=== PATIENT | female | born 1960 | race Caucasian/White ===

== ENCOUNTER 2019-12-29 23:41 | Emergency (ER) | payer MEDICARE ==
[~2019-12-29] VITALS: Ht 157.5 cm; Wt 34.0 kg
--- OUTSIDE RECORDS SUMMARY | 2019-12-29 23:44 | XMS REPORT ---
[facility] Unknown Phone Unavailable Care Team Providers Care Political Scientist Name Role Phone Unavailable Unavailable Payers Payer Name Policy Type Policy Number Effective Date Expiration Date Problems This patient has no known problems. Allergies, Adverse Reactions, Alerts Allergy Name Allergy Type Status Severity Reaction(s) Onset Date Inactive Date Treating Clinician Comments ibuprofen DA Active [place] 2019-08-29 00:00:00 ibuprofen DA Active [place] 2018-05-10 00:00:00 Medications This patient has no known medications. Encounters Start Date/Time End Date/Time Encounter Type Admission Type Attending Clinicians Care Facility Care Department Encounter ID 2020-01-24 00:00:00 2020-01-24 00:00:00 Outpatient [facility] [id number] 2020-01-13 00:00:00 2020-01-13 00:00:00 Outpatient [facility] [id number] 2020-01-13 00:00:00 2020-01-13 00:00:00 Outpatient [facility] [id number] 2020-01-13 00:00:00 2020-01-13 00:00:00 Outpatient [facility] [id number] 2019-12-30 00:00:00 2019-12-30 00:00:00 Outpatient [facility] [id number] 2019-12-24 00:00:00 2019-12-24 00:00:00 Outpatient [facility] [id number] 2019-12-24 00:00:00 2019-12-24 00:00:00 Outpatient [facility] [id number] 2019-12-23 10:35:43 2019-12-23 10:35:43 Outpatient [facility] [id number] 2019-12-23 10:07:18 2019-12-23 10:07:18 Outpatient [facility] [id number] 2019-12-23 00:00:00 2019-12-23 00:00:00 Outpatient [facility] [id number] 2019-12-16 10:05:33 2019-12-16 10:05:33 Outpatient [facility] [id number] 2019-12-16 09:41:11 2019-12-16 09:41:11 Outpatient [facility] [id number] 2019-12-16 00:00:00 2019-12-16 00:00:00 Outpatient [facility] [id number] 2019-12-16 00:00:00 2019-12-16 00:00:00 Outpatient [facility] [id number] 2019-12-16 00:00:00 2019-12-16 00:00:00 Outpatient [facility] [id number] 2019-12-09 00:00:00 2019-12-09 00:00:00 Outpatient [facility] [id number] 2019-12-01 00:00:00 2019-12-01 00:00:00 Outpatient [facility] [id number] 2019-11-29 00:00:00 2019-11-29 00:00:00 Outpatient [facility] [id number] 2019-11-23 09:41:50 2019-11-23 09:41:50 Outpatient [facility] [id number] 2019-11-22 13:08:23 2019-11-22 13:08:23 Outpatient [facility] [id number] 2019-11-18 10:10:23 2019-11-18 10:10:23 Outpatient [facility] [id number] 2019-11-18 10:01:01 2019-11-18 10:01:01 Outpatient [facility] [id number] 2019-11-18 00:00:00 2019-11-18 00:00:00 Outpatient [facility] [id number] 2019-11-12 10:01:01 2019-11-12 10:01:01 Outpatient [facility] [id number] 2019-11-11 15:48:42 2019-11-11 15:48:42 Outpatient [facility] [id number] 2019-10-22 09:47:33 2019-10-22 09:47:33 Outpatient [facility] [id number] 2019-10-22 00:00:00 2019-10-22 00:00:00 Outpatient [facility] [id number] 2019-10-22 00:00:00 2019-10-22 00:00:00 Outpatient [facility] [id number] 2019-10-21 15:46:19 2019-10-21 15:46:19 Outpatient [facility] [id number] 2019-10-21 10:30:55 2019-10-21 10:30:55 Outpatient [facility] [id number] 2019-10-21 09:59:57 2019-10-21 09:59:57 Outpatient [facility] [id number] 2019-10-07 00:00:00 2019-10-07 00:00:00 Outpatient [facility] [id number] 2019-10-07 00:00:00 2019-10-07 00:00:00 Outpatient [facility] [id number] 2019-10-07 00:00:00 2019-10-07 00:00:00 Outpatient [facility] [id number] 2019-10-07 00:00:00 2019-10-07 00:00:00 Outpatient [facility] [id number] 2019-09-23 11:17:45 2019-09-23 11:17:45 Outpatient [facility] [id number] 2019-09-23 10:30:55 2019-09-23 10:30:55 Outpatient [facility] [id number] 2019-09-22 00:00:00 2019-09-22 00:00:00 Outpatient [facility] [id number] 2019-09-21 16:03:02 2019-09-21 16:03:02 Outpatient [facility] [id number] 2019-09-13 16:30:29 2019-09-13 16:30:29 [facility] [id number] 2019-09-09 10:24:15 2019-09-09 10:24:15 Outpatient [facility] [id number] 2019-08-26 10:10:07 2019-08-26 10:10:07 Outpatient [facility] [id number] 2019-08-26 09:26:02 2019-08-26 09:26:02 Outpatient [facility] [id number] 2019-08-25 00:00:00 2019-08-25 00:00:00 Outpatient [facility] [id number] 2019-08-24 00:00:00 2019-08-24 00:00:00 Outpatient [facility] [id number] 2019-08-24 00:00:00 2019-08-24 00:00:00 Outpatient [facility] [id number] 2019-08-12 00:00:00 2019-08-12 00:00:00 Outpatient [facility] [id number] 2019-08-10 00:00:00 2019-08-10 00:00:00 Outpatient [facility] [id number] 2019-08-10 00:00:00 2019-08-10 00:00:00 Outpatient [facility] [id number] 2019-08-06 00:00:00 2019-08-06 00:00:00 Outpatient [facility] [id number] 2019-08-06 00:00:00 2019-08-06 00:00:00 Outpatient [facility] [id number] 2019-08-05 00:00:00 2019-08-05 00:00:00 Outpatient [facility] [id number] 2019-07-27 13:21:13 2019-07-27 13:21:13 Outpatient [facility] [id number] 2019-07-27 12:55:29 2019-07-27 12:55:29 Outpatient [facility] [id number] 2019-07-23 12:51:39 2019-07-23 12:51:39 Outpatient [facility] [id number] 2019-07-23 12:51:35 2019-07-23 12:51:35 Outpatient [facility] [id number] 2019-07-23 12:05:06 2019-07-23 12:05:06 Outpatient [facility] [id number] 2019-07-23 10:08:54 2019-07-23 10:08:54 Outpatient [facility] [id number] 2019-07-23 00:00:00 2019-07-23 00:00:00 Outpatient [facility] [id number] 2019-07-20 14:19:34 2019-07-20 14:19:34 Outpatient [facility] [id number] 2019-07-13 13:39:25 2019-07-13 13:39:25 Outpatient [facility] [id number] 2019-07-06 00:00:00 2019-07-06 00:00:00 Outpatient [facility] [id number] 2019-07-05 00:00:00 2019-07-05 00:00:00 Outpatient [facility] [id number] 2019-06-29 12:53:46 2019-06-29 12:53:46 Outpatient [facility] [id number] 2019-06-29 12:42:06 2019-06-29 12:42:06 Outpatient [facility] [id number] 2019-06-07 15:32:42 2019-06-07 15:32:42 Outpatient [facility] [id number] 2019-06-01 11:18:12 2019-06-01 11:18:12 Outpatient [facility] [id number] 2019-06-01 11:00:38 2019-06-01 11:00:38 Outpatient [facility] [id number] 2019-05-10 15:37:38 2019-05-10 15:37:38 Outpatient [facility] [id number] 2019-05-04 10:26:36 2019-05-04 10:26:36 Outpatient [facility] [id number] 2019-05-04 10:06:59 2019-05-04 10:06:59 Outpatient [facility] [id number] 2019-04-15 09:50:12 2019-04-15 09:50:12 Outpatient [facility] [id number] 2019-04-06 10:32:50 2019-04-06 10:32:50 Outpatient [facility] [id number] 2019-04-06 10:15:58 2019-04-06 10:15:58 Outpatient [facility] [id number] 2019-04-05 13:14:38 2019-04-05 13:14:38 Outpatient [facility] [id number] 2019-03-12 10:32:33 2019-03-12 10:32:33 Outpatient [facility] [id number] 2019-03-12 10:13:10 2019-03-12 10:13:10 Outpatient [facility] [id number] 2019-03-10 08:43:31 2019-03-10 08:43:31 Outpatient [facility] [id number] 2019-02-22 00:00:00 2019-02-22 00:00:00 Outpatient [facility] [id number] 2019-02-12 10:32:24 2019-02-12 10:32:24 Outpatient [facility] [id number] 2019-02-12 10:12:03 2019-02-12 10:12:03 Outpatient [facility] [id number] 2019-02-11 14:35:50 2019-02-11 14:35:50 Outpatient [facility] [id number] 14:12:23 2019 14:12:23 Outpatient [facility] [id number] 2019-01-15 09:55:28 2019-01-15 09:55:28 Outpatient [facility] [id number] 2019-01-15 09:39:50 2019-01-15 09:39:50 Outpatient [facility] [id number] 2019-01-12 13:41:37 2019-01-12 13:41:37 Outpatient [facility] [id number] 2018-12-18 10:17:11 2018-12-18 10:17:11 Outpatient [facility] [id number] 2018-12-18 10:01:54 2018-12-18 10:01:54 Outpatient [facility] [id number] 2018-12-03 08:51:10 2018-12-03 08:51:10 Outpatient [facility] [id number] 2018-11-23 00:00:00 2018-11-23 00:00:00 Outpatient [facility] [id number] 2018-11-23 00:00:00 2018-11-23 00:00:00 Outpatient [facility] [id number] 2018-11-20 09:41:45 2018-11-20 09:41:45 Outpatient [facility] [id number] 2018-11-20 09:28:38 2018-11-20 09:28:38 Outpatient [facility] [id number] 2018-10-27 13:36:59 2018-10-27 13:36:59 Outpatient [facility] [id number] 2018-10-23 09:55:26 2018-10-23 09:55:26 Outpatient [facility] [id number] 2018-10-23 09:38:28 2018-10-23 09:38:28 Outpatient [facility] [id number] 2018-10-07 13:25:20 2018-10-07 13:25:20 Outpatient [facility] [id number] 2018-09-29 00:00:00 2018-09-29 00:00:00 Outpatient [facility] [id number] 2018-09-25 09:38:22 2018-09-25 09:38:22 Outpatient [facility] [id number] 2018-09-25 09:16:40 2018-09-25 09:16:40 Outpatient [facility] [id number] 2018-09-16 13:38:56 2018-09-16 13:38:56 Outpatient [facility] [id number] 2018-09-09 13:25:03 2018-09-09 13:25:03 Outpatient [facility] [id number] 2018-09-09 13:10:54 2018-09-09 13:10:54 Outpatient [facility] [id number] 2018-08-31 10:14:37 2018-08-31 10:14:37 Outpatient [facility] [id number] 2018-08-21 08:55:25 2018-08-21 08:55:25 Outpatient [facility] [id number] 2018-08-21 08:32:18 2018-08-21 08:32:18 Outpatient [facility] [id number] 2018-08-14 00:00:00 2018-08-14 00:00:00 Outpatient [facility] [id number] 2018-08-12 00:00:00 2018-08-12 00:00:00 Outpatient [facility] [id number] 2018-08-11 09:20:58 2018-08-11 09:20:58 Outpatient [facility] [id number] 2018-08-11 09:02:38 2018-08-11 09:02:38 Outpatient [facility] [id number] 2018-08-07 09:07:12 2018-08-07 09:07:12 Outpatient [facility] [id number] 2018-08-07 08:49:45 2018-08-07 08:49:45 Outpatient [facility] [id number] 2018-07-31 09:57:34 2018-07-31 09:57:34 Outpatient [facility] [id number] 2018-07-31 09:23:50 2018-07-31 09:23:50 Outpatient [facility] [id number] 2018-07-27 08:32:58 2018-07-27 08:32:58 Outpatient [facility] [id number] 2018-07-24 08:52:19 2018-07-24 08:52:19 Outpatient [facility] [id number] 2018-07-24 08:35:47 2018-07-24 08:35:47 Outpatient [facility] [id number] 2018-07-23 00:00:00 2018-07-23 00:00:00 Outpatient [facility] [id number] 2018-07-21 07:44:04 2018-07-21 07:44:04 Outpatient [facility] [id number] 2018-07-21 00:00:00 2018-07-21 00:00:00 Outpatient [facility] [id number] 2018-07-17 08:18:32 2018-07-17 08:18:32 Outpatient [facility] [id number] 2018-07-17 08:18:04 2018-07-17 08:18:04 Outpatient [facility] [id number] 2018-07-16 00:00:00 2018-07-16 00:00:00 Outpatient [facility] [id number] 2018-07-14 11:08:11 2018-07-14 11:08:11 Outpatient [facility] [id number] 2018-07-14 09:29:38 2018-07-14 09:29:38 Outpatient [facility] [id number] 2018-07-13 08:23:31 2018-07-13 08:23:31 Outpatient [facility] [id number] 2018-07-09 14:41:48 2018-07-09 14:41:48 Outpatient [facility] [id number] 2018-07-06 09:07:04 2018-07-06 09:07:04 Outpatient [facility] [id number] 2018-07-06 00:00:00 2018-07-06 00:00:00 Outpatient [facility] [id number] 2018-06-30 09:09:12 2018-06-30 09:09:12 Outpatient [facility] [id number] 2018-06-29 11:58:35 2018-06-29 11:58:35 Outpatient [facility] [id number] 2018-06-22 10:45:52 2018-06-22 10:45:52 Outpatient [facility] [id number] 2018-06-22 09:17:51 2018-06-22 09:17:51 Outpatient [facility] [id number] 2018-06-17 15:18:35 2018-06-17 15:18:35 Outpatient [facility] [id number] 2018-06-16 00:00:00 2018-06-16 00:00:00 Outpatient [facility] [id number] 2018-06-11 08:49:21 2018-06-11 08:49:21 Outpatient [facility] [id number] 2018-05-21 08:08:03 2018-05-21 08:08:03 Outpatient [facility] [id number] 2018-05-04 20:38:42 2018-05-04 20:38:42 [facility] [id number] Results Test Description Test Time Test Comments Text Results Atomic Results Result Comments - XR WRIST 3 + V RT 2019-08-29 19:23:00 FAX: CARA RAYA NP [place]: St: REG Name: JASON GARCIA [facility] : 1960 Age/S: 59/F [address] [facility] Unit #: [id number] Loc: [place] [address] Phys: CARA RAYA NP Acct: [id number] Dis Date: Status: REG ER PHONE #: [phone] Exam Date: 08/29/2019 1900 FAX #: [phone] Reason: Pain EXAMS: CPT CODE: [id number] XR WRIST 3 + V RT [id number] CLINICAL HISTORY: Pain TECHNIQUE: AP, oblique, and lateral views of the right wrist COMPARISON: None FINDINGS: No acute fracture or dislocation. Bony trabecular pattern is unremarkable. No cortical destruction or periosteal reaction. Mild radiocarpal and triscaphe joint space narrowing. Regional soft tissues are unremarkable. IMPRESSION: Mild radiocarpal and triscaphe joint space narrowing. at 1923 Reported and signed by: Virginia Roberts D.O. CC: CARA RAYA NP Technologist: Kathleen Gonsales RT(R) Trnscrd Date/Time/By: 08/29/2019 (1922) : By: [email or web address] Orig Print D/T: S: 08/29/2019 (1926) PAGE 1 Signed Report URINALYSIS COMPLETE 2019-01-23 21:37:00 UA COLOR (test code=COLU) YELLOW YELLOW UA APPEARANCE (test code=APPU) CLEAR CLEAR UA GLUCOSE DIPSTICK (test code=DGLUU) NEGATIVE mg/dL NEGATIVE UA BILIRUBIN DIPSTICK (test code=BILU) NEGATIVE mg/dL NEGATIVE UA KETONE DIPSTICK (test code=KETU) Negative mg/dL NEGATIVE UA SPECIFIC GRAVITY (test code=SGU) 1.020 1.001-1.035 UA BLOOD DIPSTICK (test code=PREET) Negative NEGATIVE UA PH DIPSTICK (test code=DEBRA) 6.0 5.0-8.0 UA PROTEIN DIPSTICK (test code=PROU) Negative mg/dL NEGATIVE UA UROBILINIOGEN DIPSTICK (test code=URO) 2.0 (1+) mg/dL 0.0-0.2 UA NITRITE DIPSTICK (test code=ESTUARDO) NEGATIVE NEGATIVE UA LEUKOCYTE ESTERASE W REFLEX (test code=LEUUR) TRACE NEGATIVE UA WBC (test code=WBCU) 0-5 #/HPF 0-5 UA RBC (test code=RBCU) 0-2 #/HPF 0-5 UA EPITHELIAL CELLS (test code=EPIU) FEW per HPF FEW UA BACTERIA (test code=BACU) FEW #/HPF NONE UA CALCIUM OXALATE CRYSTALS (test code=CAOXU) FEW #/HPF NONE UA MUCUS (test code=MUCU) FEW #/LPF FEW Urine Source? Clean CatchURINALYSIS [id number] 21:31:00* Test Item Value Reference Range Comments UA COLOR (test code=COLU) YELLOW YELLOW UA APPEARANCE (test code=APPU) CLEAR CLEAR UA GLUCOSE DIPSTICK (test code=DGLUU) NEGATIVE mg/dL NEGATIVE UA BILIRUBIN DIPSTICK (test code=BILU) NEGATIVE mg/dL NEGATIVE UA KETONE DIPSTICK (test code=KETU) Negative mg/dL NEGATIVE UA SPECIFIC GRAVITY (test code=SGU) 1.020 1.001-1.035 UA BLOOD DIPSTICK (test code=PREET) Negative NEGATIVE UA PH DIPSTICK (test code=DEBRA) 6.0 5.0-8.0 UA PROTEIN DIPSTICK (test code=PROU) Negative mg/dL NEGATIVE UA UROBILINIOGEN DIPSTICK (test code=URO) mg/dL NEGATIVE UA NITRITE DIPSTICK (test code=ESTUARDO) NEGATIVE NEGATIVE UA LEUKOCYTE ESTERASE W REFLEX (test code=LEUUR) TRACE NEGATIVE UA WBC (test code=WBCU) per HPF 0-5 Urine Source? Clean Catch- CT ABD PELVIS W WO [id number] 22:48:00 Name: JASON GARCIA [facility] : 1960 Age/S: 58 / F [address] Unit #: [id number] Loc: [place] [address] Phys: Alexsandra Foster MD Acct: [id number] Di s Date: Status: REG ER PHONE #: Exam Date: 01/16/20192151 FAX #: [phone] Reason: left flank pain, diarrhea EXAMS: CPT CODE: [id number] CT ABD PELVIS W WO CONT 14507 REASON FOR EXAM: left flank pain, diarrhea EXAM ORDER DATE: 01/16/2019 8:51 PM Ordering M.Amos: Alexsandra Foster MD PROCEDURE: - CT ABD PELVIS W WO CONT COMPARISON: FINDINGS: CT images of the abdomen and pelvis were obtained 1st without and follow with IV and wi thout oral contrast at 5mm. Dose modulation, iterative reconstruction, and /or weight based adjustment of the MA/KV was utilized to reduce the radiat ion dose to as low as reasonably achievable. Intravenous co ntrast: 100c of Omnipaque 370. The liver, spleen, pancreas are reymundo ssly within normal limits. The gallbladder is unremarkable by CT. The kidneys are within normal limits. The urinary bladder is partially contracted. The colon, small bowel, and stomach are within nor mal limits without evidence of obstruction. The appendix is unremarkable. No evidence of free air or free fluid. The uterus is unremarkabl e. Diffuse atherosclerotic disease of the abdominal aorta IMPRESSION: No acute findings in the abdomen. Electronica lly Signed by Walker Oakes on 01/16/2019 at 2248 Reporte d and signed by: Carlin Oakes M.D. CC: Alexsandra Foster MD Technologist:Shailesh Kay, RT(R)(CT); MOL CTDI: DLP: Trnscb Date/Time: 01/16/2019 (2247) [email or web address] Orig Print D/T: S: 01/16/2019 (715) CTDI: DLP: PAGE 1 Signed Report BASIC METABOLIC [id number] 21:35:00* Test Item Value Reference Range Comments SODIUM (test code=NA) 139 mmol/L 136-145 POTASSIUM (test code=K) 3.5 mmol/L 3.5-5.1 CHLORIDE (test code=CL) 106.0 mmol/L 98-107 CARBON DIOXIDE (test code=CO2) 28.0 mmol/L 21-32 ANION GAP (test code=GAP) 8.5 10-20 GLUCOSE (test code=GLU) 78 mg/dL 74-106 BLOOD UREA NITROGEN (test code=BUN) 16 mg/dL 7-18 GLOMERULAR FILTRATION RATE (test code=GFR) > 60 mL/min >=60 Estimated GFR by using Modified MDRD formula.Chronic kidney disease is defined as either kidney damageor GFR <60 mL/min/1.73 m2 for >3 months. CREATININE (test code=CREAT) 0.90 mg/dL 0.55-1.02 Note change in reference range due to change in reagent. BUN/CREATININE RATIO (test code=BUN/CREA) 16.9 10-20 CALCIUM (test code=CA) 8.4 mg/dL 8.5-10.1 HEPATIC FUNCTION [id number] 21:35:00* Test Item Value Reference Range Comments TOTAL PROTEIN (test code=PROT) 7.1 gram/dL 6.4-8.2 ALBUMIN (test code=ALB) 3.6 g/dL 3.4-5.0 GLOBULIN (test code=GLOB) 3.5 gram/dL 2.7-4.2 ALBUMIN/GLOBULIN RATIO (test code=A/G) 1.0 0.75-1.50 BILIRUBIN TOTAL (test code=BILT) 0.40 mg/dL 0.0-1.0 BILIRUBIN DIRECT (test code=BILD) 0.11 mg/dL 0.0-0.20 SGOT/AST (test code=AST) 37 IUnit/L 15-37 SGPT/ALT (test code=ALT) 37 IUnit/L 12-78 ALKALINE PHOSPHATASE TOTAL (test code=ALKP) 107 IUnit/L 45-117 Note change in reference range due to change in reagent. [id number] 21:35:00* Test Item Value Reference Range Comments LIPASE (test code=LIP) 80 U/L 73.0-393.0 HCG SERUM [id number] 21:35:00* Test Item Value Reference Range Comments HCG SERUM QUAL (test code=HCGQL) NEGATIVE NEGATIVE This HCGQL test is NOT applicable for MALE patients.Check with nurse about probable order error.If Tumor Marker Test needed, nurse should order test "HCGTU"(Test #550.25354) URINALYSIS [id number] 21:25:00* Test Item Value Reference Range Comments UA COLOR (test code=COLU) YELLOW YELLOW UA APPEARANCE (test code=APPU) HAZY CLEAR UA GLUCOSE DIPSTICK (test code=DGLUU) NEGATIVE mg/dL NEGATIVE UA BILIRUBIN DIPSTICK (test code=BILU) NEGATIVE NEGATIVE UA KETONE DIPSTICK (test code=KETU) NEGATIVE mg/dL NEGATIVE UA SPECIFIC GRAVITY (test code=SGU) >=1.030 1.001-1.035 UA BLOOD DIPSTICK (test code=PRETE) TRACE NEGATIVE UA PH DIPSTICK (test code=DEBRA) 6.0 5.0-8.0 UA PROTEIN DIPSTICK (test code=PROU) TRACE (15) mg/dL Neg-15 UA UROBILINIOGEN DIPSTICK (test code=URO) 1 mg/dL (1+) mg/dL 0.0-0.2 UA NITRITE DIPSTICK (test code=ESTUARDO) NEGATIVE NEGATIVE UA LEUKOCYTE ESTERASE W REFLEX (test code=LEUUR) 1+ NEGATIVE UA WBC (test code=WBCU) 3-5 per HPF 0-5 IN SOME URINARY TRACT INFECTIONS THERE MAY NOT BE ENOUGHWBCs IN THE URINE TO TRIGGER AN AUTOMATIC (REFLEX) URINECULTURE. A SEPERATE ORDER FOR URINE CULTURE IS RECOMMENDEDIF THERE IS STRONG SUPPORT FOR A URINARY TRACT INFECTIONCLINICALLY. UA RBC (test code=RBCU) 0-3 per HPF 0-5 UA EPITHELIAL CELLS (test code=EPIU) Few (2-5/hpf) per HPF Few UA BACTERIA (test code=BACU) MANY per HPF NONE Urine Source? Clean CatchBASIC METABOLIC [id number] 21:17:00* Test Item Value Reference Range Comments SODIUM (test code=NA) 139 mmol/L 136-145 POTASSIUM (test code=K) 3.5 mmol/L 3.5-5.1 CHLORIDE (test code=CL) 106.0 mmol/L 98-107 CARBON DIOXIDE (test code=CO2) mmol/L 21-32 ANION GAP (test code=GAP) 10-20 GLUCOSE (test code=GLU) mg/dL 74-106 BLOOD UREA NITROGEN (test code=BUN) mg/dL 7-18 GLOMERULAR FILTRATION RATE (test code=GFR) mL/min >=60 CREATININE (test code=CREAT) mg/dL 0.55-1.02 BUN/CREATININE RATIO (test code=BUN/CREA) 10-20 CALCIUM (test code=CA) mg/dL 8.5-10.1 HEPATIC FUNCTION [id number] 21:17:00* Test Item Value Reference Range Comments TOTAL PROTEIN (test code=PROT) gram/dL 6.4-8.2 ALBUMIN (test code=ALB) g/dL 3.4-5.0 GLOBULIN (test code=GLOB) gram/dL 2.7-4.2 ALBUMIN/GLOBULIN RATIO (test code=A/G) 0.75-1.50 BILIRUBIN TOTAL (test code=BILT) mg/dL 0.0-1.0 BILIRUBIN DIRECT (test code=BILD) mg/dL 0.0-0.20 SGOT/AST (test code=AST) IUnit/L 15-37 SGPT/ALT (test code=ALT) IUnit/L 12-78 ALKALINE PHOSPHATASE TOTAL (test code=ALKP) IUnit/L 45-117 [id number] 21:17:00* Test Item Value Reference Range Comments LIPASE (test code=LIP) U/L 73.0-393.0 HCG SERUM [id number] 21:17:00* Test Item Value Reference Range Comments HCG SERUM QUAL (test code=HCGQL) NEGATIVE NEGATIVE This HCGQL test is NOT applicable for MALE patients.Check with nurse about probable order error.If Tumor Marker Test needed, nurse should order test "HCGTU"(Test #[id number]) BASIC METABOLIC [id number] 21:16:00* Test Item Value Reference Range Comments SODIUM (test code=NA) 139 mmol/L 136-145 POTASSIUM (test code=K) 3.5 mmol/L 3.5-5.1 CHLORIDE (test code=CL) 106.0 mmol/L 98-107 CARBON DIOXIDE (test code=CO2) mmol/L 21-32 ANION GAP (test code=GAP) 10-20 GLUCOSE (test code=GLU) mg/dL 74-106 BLOOD UREA NITROGEN (test code=BUN) mg/dL 7-18 GLOMERULAR FILTRATION RATE (test code=GFR) mL/min >=60 CREATININE (test code=CREAT) mg/dL 0.55-1.02 BUN/CREATININE RATIO (test code=BUN/CREA) 10-20 CALCIUM (test code=CA) mg/dL 8.5-10.1 HEPATIC FUNCTION [id number] 21:16:00* Test Item Value Reference Range Comments TOTAL PROTEIN (test code=PROT) gram/dL 6.4-8.2 ALBUMIN (test code=ALB) g/dL 3.4-5.0 GLOBULIN (test code=GLOB) gram/dL 2.7-4.2 ALBUMIN/GLOBULIN RATIO (test code=A/G) 0.75-1.50 BILIRUBIN TOTAL (test code=BILT) mg/dL 0.0-1.0 BILIRUBIN DIRECT (test code=BILD) mg/dL 0.0-0.20 SGOT/AST (test code=AST) IUnit/L 15-37 SGPT/ALT (test code=ALT) IUnit/L 12-78 ALKALINE PHOSPHATASE TOTAL (test code=ALKP) IUnit/L 45-117 [id number] 21:16:00* Test Item Value Reference Range Comments LIPASE (test code=LIP) U/L 73.0-393.0 HCG SERUM [id number] 21:16:00* Test Item Value Reference Range Comments HCG SERUM QUAL (test code=HCGQL) NEGATIVE URINALYSIS [id number] 21:11:00* Test Item Value Reference Range Comments UA COLOR (test code=COLU) YELLOW YELLOW UA APPEARANCE (test code=APPU) HAZY CLEAR UA GLUCOSE DIPSTICK (test code=DGLUU) NEGATIVE mg/dL NEGATIVE UA BILIRUBIN DIPSTICK (test code=BILU) NEGATIVE NEGATIVE UA KETONE DIPSTICK (test code=KETU) NEGATIVE mg/dL NEGATIVE UA SPECIFIC GRAVITY (test code=SGU) >=1.030 1.001-1.035 UA BLOOD DIPSTICK (test code=PREET) TRACE NEGATIVE UA PH DIPSTICK (test code=DEBRA) 6.0 5.0-8.0 UA PROTEIN DIPSTICK (test code=PROU) TRACE (15) mg/dL Neg-15 UA UROBILINIOGEN DIPSTICK (test code=URO) 1 mg/dL (1+) mg/dL 0.0-0.2 UA NITRITE DIPSTICK (test code=ESTUARDO) NEGATIVE NEGATIVE UA LEUKOCYTE ESTERASE W REFLEX (test code=LEUUR) 1+ NEGATIVE UA WBC (test code=WBCU) per HPF 0-5 Urine Source? Clean CatchCBC W/O [id number] 20:55:00* Test Item Value Reference Range Comments WHITE BLOOD CELL (test code=WBC) K/mm3 4.5-12.5 RED BLOOD CELL (test code=RBC) mill/mm3 3.7-5.2 HEMOGLOBIN (test code=HGB) 12.4 gram/dL 11.5-15.5 HEMATOCRIT (test code=HCT) 39.2 % 36.0-46.0 MEAN CELL VOLUME (test code=MCV) fL 80-98 MEAN CELL HGB (test code=MCH) picogram 27.0-33.0 MEAN CELL HGB CONCETRATION (test code=MCHC) gram/dL 33.0-36.0 RED CELL DISTRIBUTION WIDTH (test code=RDW) % 11.6-16.2 PLATELET COUNT (test code=PLT) K/mm3 150-450 MEAN PLATELET VOLUME (test code=MPV) fL 6.7-11.0 CBC W/O [id number] 20:55:00* Test Item Value Reference Range Comments WHITE BLOOD CELL (test code=WBC) 9.1 K/mm3 4.5-12.5 RED BLOOD CELL (test code=RBC) 4.21 mill/mm3 3.7-5.2 HEMOGLOBIN (test code=HGB) 12.4 gram/dL 11.5-15.5 HEMATOCRIT (test code=HCT) 39.2 % 36.0-46.0 MEAN CELL VOLUME (test code=MCV) 93.1 fL 80-98 MEAN CELL HGB (test code=MCH) 29.5 picogram 27.0-33.0 MEAN CELL HGB CONCETRATION (test code=MCHC) 31.6 gram/dL 33.0-36.0 RED CELL DISTRIBUTION WIDTH (test code=RDW) 13.5 % 11.6-16.2 PLATELET COUNT (test code=PLT) 209 K/mm3 150-450 MEAN PLATELET VOLUME (test code=MPV) 9.7 fL 6.7-11.0
[2019-12-30] MEDS ORDERED: KETOROLAC TROMETHAMINE 30 MG/ML VIAL IV STA (00:01)
[2019-12-30] MEDS ORDERED: SODIUM CHLORIDE 0.9% 1000ML 1,000 ML IV ONE (00:15)
[2019-12-30 00:22] LABS: BASOPHILS % 0.2 % (0.0-1.0); EOSINOPHILS % 0.3 % (0.0-6.0); HEMATOCRIT 44.5 % (34.2-44.1); HEMOGLOBIN 14.2 g/dL (12.0-16.0); LYMPHOCYTES # (AUTO) 0.6 (1.0-3.2); LYMPHOCYTES % 5.2 % (18.0-39.1); MEAN CORPUSCULAR HEMOGLOBIN 30.1 pg (28-32); MEAN CORPUSCULAR HGB CONC 31.9 g/dL (31-35); MEAN CORPUSCULAR VOLUME 94.5 fL (81-99); MONOCYTES # (AUTO) 0.3 (0.2-0.8); MONOCYTES % 2.9 % (4.4-11.3); NEUTROPHILS # (AUTO) 10.6 (2.1-6.9); NEUTROPHILS % 91.1 % (38.7-80.0); PLATELET COUNT 257 x10e3/uL (140-360); RED BLOOD COUNT 4.71 x10e6/uL (3.6-5.1); RED CELL DISTRIBUTION WIDTH 13.7 % (11.7-14.4)
--- NOTE | 2019-12-30 00:37 | Diagnostic Imaging Report ---
EXAMINATION: CHEST SINGLE (PORTABLE) INDICATION: Cough COMPARISON: None FINDINGS: TUBES and LINES: None. LUNGS: Normal lung volumes. Mild central bronchial wall thickening. No consolidations. PLEURA: No pleural effusion or pneumothorax. HEART AND MEDIASTINUM: The cardiomediastinal silhouette is unremarkable. There are atherosclerotic calcifications within the aorta. BONES AND SOFT TISSUES: No acute osseous lesion. Soft tissues are unremarkable. UPPER ABDOMEN: No free air under the diaphragm. IMPRESSION: Findings which can be seen with bronchitis. No consolidations. Signed by: José Hayes DO on 12/30/2019 12:34 AM
[2019-12-30 00:42] LABS: ALANINE AMINOTRANSFERASE 18 IU/L (0-55); ALBUMIN 4.2 g/dL (3.5-5.0); ALBUMIN/GLOBULIN RATIO 1.5 (0.8-2.0); ALKALINE PHOSPHATASE 92 IU/L (40-150); ANION GAP 16.7 mmol/L (8-16); BLOOD UREA NITROGEN 13 mg/dL (7-26); BUN/CREATININE RATIO 14 (6-25); CALCIUM 9.8 mg/dL (8.4-10.2); CARBON DIOXIDE 22 mmol/L (22-29); CHLORIDE 106 mmol/L (98-107); CREATINE KINASE 53 IU/L (29-168); CREATININE, SERUM 0.92 mg/dL (0.57-1.11); EST GLOMERULAR FILTRATION RATE > 60 ML/MIN (60-); GLUCOSE 141 mg/dL (74-118); POTASSIUM 3.7 mmol/L (3.5-5.1); SODIUM 141 mmol/L (136-145)
[2019-12-30 00:43] LABS: AMYLASE 70 U/L (25-125); LIPASE 4 U/L (8-78)
--- NOTE | 2019-12-30 00:53 | Diagnostic Imaging Report ---
EXAM: CT Abdomen and Pelvis WITHOUT contrast INDICATION: Left flank pain COMPARISON: None. TECHNIQUE: Abdomen and pelvis were scanned utilizing a multidetector helical scanner from the lung base to the pubic symphysis without administration of IV contrast. Absence of intravenous contrast decreases sensitivity for detection of focal lesions and vascular pathology. Coronal and sagittal reformations were obtained. Routine protocol was performed. IV CONTRAST: None ORAL CONTRAST: None COMPLICATIONS: None RADIATION DOSE: Total DLP: 174 mGy*cm Estimated effective dose: (DLP x 0.015 x size factor) mSv CTDIvol has been reviewed. It is below the limits set by the Radiation Protocol Committee (RPC). Dose modulation, iterative reconstruction, and/or weight based adjustment of the mA/kV was utilized to reduce the radiation dose to as low as reasonably achievable. FINDINGS: LINES and TUBES: None. LOWER THORAX: Left lower lung peripheral atelectasis. HEPATOBILIARY: No focal hepatic lesions. No biliary ductal dilation. GALLBLADDER: No radio-opaque stones or sludge. No wall thickening. SPLEEN: No splenomegaly. PANCREAS: No focal masses or ductal dilatation. ADRENALS: No adrenal nodules KIDNEYS/URETERS: No hydronephrosis. No cystic or solid mass lesions. No stones. GI TRACT: No abnormal distention, wall thickening, or evidence of bowel obstruction. Appendix is normal. PELVIC ORGANS/BLADDER: Hysterectomy. No adnexal masses. Urinary bladder unremarkable. LYMPH NODES: No lymphadenopathy. VESSELS: There is moderate atherosclerotic disease in the aorta and major arterial branches. PERITONEUM / RETROPERITONEUM: No free air or fluid. BONES: There are degenerative changes in the spine. Low bone mineral density. SOFT TISSUES: Unremarkable. IMPRESSION: 1. No acute abnormality in the abdomen or pelvis on this noncontrast CT. 2. Low bone mineral density. Signed by: José Hayes DO on 12/30/2019 12:50 AM
[2019-12-30 01:44] LABS: AMPHETAMINES SCREEN,URINE NEGATIVE (NEGATIVE); PHENCYCLIDINE SCREEN,URINE NEGATIVE (NEGATIVE)
[2019-12-30 01:45] LABS: BENZODIAZEPINES SCREEN,URINE POSITIVE (NEGATIVE)
[2019-12-30 03:20] LABS: CLARITY,URINE CLOUDY (CLEAR); COLOR,URINE YELLOW (YELLOW)
[2019-12-30 03:21] LABS: BILIRUBIN,URINE NEGATIVE (NEGATIVE); KETONES,URINE NEGATIVE (NEGATIVE); LEUKOCYTE ESTERASE ,URINE NEGATIVE (NEGATIVE); NITRITE,URINE NEGATIVE (NEGATIVE); PROTEIN,URINE DIPSTICK NEGATIVE (NEGATIVE); RBC,URINE >50 /HPF (0-5); URINE UROBILINOGEN 0.2 mg/dL (0.2 - 1)
[2019-12-30 03:22] LABS: BACTERIA,URINE MANY /HPF; EPITHELIAL CELLS,URINE FEW /LPF; MUCUS,URINE MODERATE (RARE)
[2019-12-30 03:40] VITALS: BP 102/80
== END 2019-12-30 03:55 | disposition home or self-care (01) ==
LOC: ER 23:41
DX: R10.12 Left upper quadrant pain (principal); R10.13 Epigastric pain; M54.6 Pain in thoracic spine; N30.91 Cystitis, unspecified with hematuria; F17.210 Nicotine dependence, cigarettes, uncomplicated
CPT/HCPCS: 36415; 71045; 74176; 80053; 80307; 81001; 82150; 82550; 82553; 82948; 83690; 84484; 85025; 93005; 99284; J1885; J7030

== ENCOUNTER 2023-02-17 21:13 | Emergency (ER) | payer OTHER ==
[~2023-02-17] VITALS: Ht 157.5 cm; Wt 34.0 kg
[2023-02-17] MEDS ORDERED: AMOX TR-K CLV1 EAC2 PO (22:00)
== END 2023-02-17 22:05 | disposition home or self-care (01) ==
LOC: ER 21:32
DX: R07.0 Pain in throat (principal); J03.90 Acute tonsillitis, unspecified; I10 Essential (primary) hypertension
CPT/HCPCS: 99282

== ENCOUNTER 2023-04-14 21:10 | Emergency (ER) | payer OTHER ==
[~2023-04-14] VITALS: Ht 157.5 cm; Wt 34.0 kg
[~2023-04-14 21:10] MED LIST: AMOX TR-K CLV1 EAC2 PO
[2023-04-14 22:13] LABS: BASOPHILS % 0.2 % (0.0-1.0); EOSINOPHILS # (AUTO) 0.2 (0.0-0.4); HEMATOCRIT 32.1 % (34.2-44.1); HEMOGLOBIN 9.2 g/dL (12.0-16.0); LYMPHOCYTES # (AUTO) 2.1 (1.0-3.2); LYMPHOCYTES % 14.2 % (18.0-39.1); MEAN CORPUSCULAR HEMOGLOBIN 26.3 pg (28-32); MEAN CORPUSCULAR HGB CONC 28.7 g/dL (31-35); MEAN CORPUSCULAR VOLUME 91.7 fL (81-99); MONOCYTES # (AUTO) 0.7 (0.2-0.8); NEUTROPHILS # (AUTO) 11.3 (2.1-6.9); NEUTROPHILS % 78.7 % (38.7-80.0); PLATELET COUNT 501 x10e3/uL (140-360); RED CELL DISTRIBUTION WIDTH 17.4 % (11.7-14.4)
[2023-04-14 22:22] LABS: ALBUMIN/GLOBULIN RATIO 0.9 (0.8-2.0); ANION GAP 15.6 mmol/L (8-16); CALCIUM 8.6 mg/dL (8.4-10.2); CREATININE, SERUM 0.78 mg/dL (0.57-1.11); POTASSIUM 4.6 mmol/L (3.5-5.1)
[2023-04-14 22:29] LABS: CREATINE KINASE MB 2.2 ng/mL (0-5.0)
[2023-04-14] MEDS ORDERED: IOPAMIDOL 370 MG/ML 100 ML INFUS..BTL INJ ONE (23:02)
[2023-04-15] MEDS ORDERED: METRONIDAZOLE500 MG PO (01:23)
[2023-04-15] MEDS ORDERED: CIPRO500 MG PO (01:23)
[2023-04-15 01:34] VITALS: BP 129/84; PULSE 71; RESP 18; TEMP 98.3; O2SAT 99
== END 2023-04-15 01:36 | disposition home or self-care (01) ==
LOC: ER 21:29
DX: R10.11 Right upper quadrant pain (principal); R10.31 Right lower quadrant pain; K52.9 Noninfective gastroenteritis and colitis, unspecified; I10 Essential (primary) hypertension; Z85.43 Personal history of malignant neoplasm of ovary
CPT/HCPCS: 36415; 74177; 80053; 82550; 82553; 83690; 84484; 85025; 93005; 99284; Q9967